=== PATIENT | male | born 1975 | race Asian ===

== ENCOUNTER 2019-12-03 13:00 | Emergency (ER) | payer MEDICAID ==
[~2019-12-03] VITALS: Ht 167.6 cm; Wt 77.3 kg
[2019-12-03 13:23] VITALS: BP 135/73
== END 2019-12-03 17:16 | disposition left against medical advice (07) ==
LOC: ER 13:01
DX: R10.32 Left lower quadrant pain (principal); Z53.21 Procedure and treatment not carried out due to patient leaving prior to being seen by health care provider